=== PATIENT | female | born 1950 | race Caucasian/White ===

== ENCOUNTER 2018-09-09 06:39 | Inpatient (IN) ==
--- NOTE | 2018-08-14 15:04 | PAT Medication Instructions ---
Medication Instructions Date of Service August 14, 2018 Home Medications aspirin [Aspirin Low Dose] 81 mg PO HS atorvastatin 20 mg PO QAM [Viactiv] 1 dose PO DAILY docusate sodium [Dulcolax] 200 mg PO QAM [Glucosamine Complex-MSM] 1 cap PO DAILY losartan 25 mg PO QDL metoprolol succinate 50 mg PO HS metoprolol succinate 100 mg PO QAM multivitamin 1 tab PO DAILY ranitidine HCl 150 mg PO QAM STOP taking 2 weeks before surgery [Glucosamine Complex-MSM] 1 cap PO DAILY DO NOT take the morning of surgery [Viactiv] 1 dose PO DAILY docusate sodium [Dulcolax] 200 mg PO QAM losartan 25 mg PO QDL multivitamin 1 tab PO DAILY Take morning of surgery With a small sip of water, OTHERWISE NOTHING TO EAT OR DRINK AFTER MIDNIGHT: atorvastatin 20 mg PO QAM metoprolol succinate 100 mg PO QAM ranitidine HCl 150 mg PO QAM Take evening before surgery aspirin [Aspirin Low Dose] 81 mg PO HS metoprolol succinate 50 mg PO HS Other Notes If you have any questions please call us at [phone] or [phone] or [phone] or [phone]
--- NOTE | 2018-08-17 09:04 | Anesthesiology Consultation ---
Date of Service August 17, 2018 Assessment & Plan (1) Encounter for pre-operative examination: Chart Review Chart Review: Acceptable Risk for Surgery and Patient seen in Pre Admission Testing Consults Requested cardiac Cardiac Risk Assessment (Sandra) 08/18/18: "Low risk for cardiovascular event for her upcoming total knee replacement...currently optimally medically managed." Teaching & Discussion Instructed NPO after midnight before surgery, except medications with 15 cc of water. Medication instructions provided according to the PAT guidelines. History Surgery Operation Date: 09/09/18 08:50 Proposed Procedures p Right Total Knee Arthroplasty - Fernando Walters MD Height/Weight Height: 5 ft 6 in Weight: 95.708 kg Allergies Allergy/AdvReac Type Severity Reaction Status Date / Time prochlorperazine Allergy Intermediate JAW LOCKS Verified 08/11/18 11:00 hydrochlorothiazide AdvReac Severe SEVERELY Verified 08/11/18 11:02 DECREASED KIDNEY FUNCTION lisinopril AdvReac Severe SEVERELY Verified 08/11/18 11:02 DECREASED KIDNEY FUNCTION Medications Home Medications Medication Instructions Recorded Confirmed Last Taken aspirin [Aspirin Low Dose] 81 mg PO HS 08/11/18 08/11/18 Unknown atorvastatin 20 mg PO QAM 08/11/18 08/11/18 Unknown calcium-vitamin D3-vitamin K 1 dose PO DAILY 08/11/18 08/11/18 Unknown [Viactiv] docusate sodium [Dulcolax Stool 200 mg PO QAM 08/11/18 08/11/18 Unknown Softener (dss)] [id number] 1 cap PO DAILY 08/11/18 08/11/18 Unknown [Glucosamine Complex-MSM] losartan 25 mg PO QDL 08/11/18 08/11/18 Unknown metoprolol succinate 50 mg PO HS 08/11/18 08/11/18 Unknown metoprolol succinate 100 mg PO QAM 08/11/18 08/11/18 Unknown multivitamin 1 tab PO DAILY 08/11/18 08/11/18 Unknown ranitidine HCl 150 mg PO QAM 08/11/18 08/11/18 Unknown Past Medical History Medical History Deep vein thrombosis POSSIBLE SMALL DVT IN LEG (1965), PT UNSURE -- NO BLOOD THINNERS GIVEN. NEVER HAD PROBLEMS SINCE. Diabetes type 2, controlled Usually diet controlled, most recent A1C was 7.2% 07/31, pt admits diet has not been good GERD (gastroesophageal reflux disease) Hiatal hernia Hyperlipidemia Hypertension Nausea and vomiting after administration of anesthetic agent Varicose veins of both lower extremities Past Family History Family History Brother Family history of diabetes mellitus Family/Other Family hx of colon cancer Past Surgical History Surgical History H/O unilateral oophorectomy History of appendectomy History of bilateral tubal ligation History of cholecystectomy History of colonoscopy History of dilatation and curettage History of esophagogastroduodenoscopy (EGD) History of tonsillectomy Past Anesthesia History No Hx of Anesthesia Complications (other) and No Family Hx of Anesthesia Complications History of PONV Yes (severe nausea, no vomiting) Motion Sickness Screening History of Motion Sickness: Yes Social History Smoking Status: Never smoker Do You Dip or Chew Tobacco: No Hx Alcohol Use: No Hx Substance Use: No substance use type: does not use Exercise / Class Metabolic Activity III < 4 Walking/Shop/Light housework (no CP or SOB with ambulation, +SOB with stairs and hills, denies any CP) Review of Systems Pt denies any recent chest pain, shortness of breath, palpitations, cough, fever or URI. Physical Exam Vital Signs BP: 137/84 P: 49bpm (pt asymptomatic, beta blocked) SPO2: 97% RA T: 97.8 F R: 12 ENMT Mouth: + dentures (has partial upper, does not wear) and + dental restorations ( few caps); no chipped teeth and no loose teeth Thyromental Distance: > or= 3.5 Finger Breadths (3.5) Mallampati Class: II Neck normal visual inspection; neck extension not limited Respiratory normal respiratory effort Auscultation: lungs clear to auscultation bilaterally Cardiovascular Rate/Rhythm: regular rhythm and + bradycardic (marked) Heart Sounds: no murmur Vessels: no carotid bruit Extremities: no edema Testing Electrocardiogram Date: 08/17/18 Findings: + SB @ (48) No significant change from EKG of 09/05/08. Chest X-Ray Date: 08/17/18 Findings: + NAD Laboratory Results Blood Type A Positive 08/17/18 09:15 Antibody Screen NEGATIVE 08/17/18 09:15 APTT 26.3 Seconds (21.0-31.0) 08/17/18 09:15 Urine Color Dark Yellow 08/17/18 Unknown Urine Appearance Clear (Clear) 08/17/18 Unknown Urine pH 5.5 (4.5-7.5) 08/17/18 Unknown Ur Specific [place] 1.025 (1.000-1.030) 08/17/18 Unknown Urine Protein Negative (Negative) 08/17/18 Unknown Urine Glucose (UA) Negative (Negative) 08/17/18 Unknown Urine Ketones Trace (Negative) H 08/17/18 Unknown Urine Nitrite Negative (Negative) 08/17/18 Unknown Ur Leukocyte Esterase 1+ (Negative) H 08/17/18 Unknown Urine WBC (Auto) 1-5 /hpf (0-5) 08/17/18 Unknown Urine RBC (Auto) 0-4 /hpf (0-4) 08/17/18 Unknown U Hyaline Cast (Auto) 1-5 /lpf (0-5) 08/17/18 Unknown U Epithel Cells (Auto) >30 /lpf (0-5) H 08/17/18 Unknown Urine Bacteria (Auto) Negative (Negative) 08/17/18 Unknown 08/17/18 Unknown Urine Culture - Final Urine,Clean Catch Lactobacillus species 07/31/18 WBC: 4.84 H/H: 15.4/44.4 PLATELETS: 211 SODIUM: 142 POTASSIUM: 4.9 CHLORIDE: 104 CO2: 28 BUN: 15 CREATININE: 1.0 GLUCOSE: 163 A1C: 7.3% PT: 13.7 INR: 1.02
--- NOTE | 2018-08-17 09:47 | XRay Report ---
XR chest Pre-admission PA/Lat HISTORY: 68 years-old Female pat preoperative exam. No acute chest complaints COMPARISON: CTA of the chest and chest radiographs 09/05/2008 TECHNIQUE: PA and lateral views of the chest FINDINGS: Cardiomediastinal and hilar silhouettes are within normal limits. No pneumothorax, pleural effusion, focal airspace consolidation or overt pulmonary edema. Bones of the chest appear grossly intact. Dege nerative changes are noted about the spine. Cholecystectomy. IMPRESSION: No acute process. The above report was generated using voice recognition software. It may contain grammatical, syntax o r spelling errors. Electronically signed by: Colin Patel M.D. 08/17/2018 9:46 AM
[2018-08-17 11:18] LABS: Appearance Urine Clear (Clear); Bacteria Urine Automated Negative (Negative); Bilirubin Urine Negative (Negative); Color Urine Dark Yellow; Epithelial Cell Urine Auto >30 /lpf (0-5); Glucose Urine UA Negative (Negative); Ketones Urine Trace (Negative); Leukocyte Esterase Urine 1+ (Negative); Nitrite Urine Negative (Negative); Protein Urine Negative (Negative); Specific Gravity Urine 1.025 (1.000-1.030); Urobilinogen Urine Negative (Negative); pH Urine 5.5 (4.5-7.5)
[2018-08-17 11:26] LABS: Partial Thromboplastin Time 26.3 Seconds (21.0-31.0)
--- NOTE | 2018-08-19 17:33 | History and Physical Report ---
DATE OF ADMISSION: 09/09/2018 CHIEF COMPLAINT: Right knee degenerative joint disease. HISTORY OF PRESENT ILLNESS: This 68-year-old white female presents to the office with complaints of longstanding right knee pain. She has actually had bilateral knee pain, but the right is greater than the left. Pain is worse with weightbearing. It is affecting her ADLs. It is worse with walking and weightbearing. She has tried activity modification without improvement. She is not using any significant medication at this point though she has tried NSAIDs in the past. She has also done viscosupplementation in the past without lasting relief. The knee pain has been present for over 6 years. No catching or locking. No buckling. Pain is 5/10 at rest. Preoperative imaging has been obtained. She elects to proceed with right total knee arthroplasty in hopes of alleviating her discomfort. PAST MEDICAL HISTORY: Significant for hypertension, elevated cholesterol, diabetes, GERD, obesity, and osteoarthritis. PREVIOUS SURGERIES: Appendectomy, ovarian cyst excision, tonsillectomy, vein stripping, cholecystectomy. ALLERGIES: NO KNOWN ALLERGY TO COMPAZINE AND LISINOPRIL. COMPAZINE CAUSED A LOCKED JAW. CURRENT MEDICATIONS: Aspirin 81 mg daily, Lipitor 20 mg daily, losartan 25 mg p.o. daily, metoprolol 50 mg p.o. b.i.d., multivitamin daily, ranitidine 300 mg p.o. b.i.d. FAMILY HISTORY: Noncontributory. REVIEW OF SYSTEMS: Total of 10 systems were reviewed and are significant only for above stated conditions. PHYSICAL EXAMINATION: GENERAL: Well-developed, well-nourished elderly white female in no acute distress. Sitting in a chair. Alert and oriented. Obese. SKIN: Warm and dry with good turgor. No rashes or lesions. No ecchymosis or erythema. HEENT: Normocephalic, atraumatic. Eyes PERRLA, EOMI. Nares patent bilaterally without turbinate enlargement. Oropharynx without erythema or exudate. No lesions noted. Uvula midline. Oral mucosa moist. Poor dentition. Multiple teeth are missing. Fillings are noted. HEART: Bradycardic. Regular rhythm. No murmurs, gallops or rubs. LUNGS: Clear to auscultation bilaterally. No crackles, rhonchi or wheezing. Good air movement. ABDOMEN: Obese. Bowel sounds present x4, soft, nontender. No organomegaly. No masses. MUSCULOSKELETAL: Right knee evaluation reveals no intra-articular effusion. Stable cruciate and collateral ligaments. No laxity. She has focal discomfort with palpation over the medial joint line. No pain with palpation over the lateral joint line today. No defect in the patellar tendon or quadriceps tendon. Full terminal extension. Flexion to just greater than 90 degrees. Strength is 5/5 with fair quad tone. She is ambulatory with a slight limp. NEUROLOGIC: Cranial nerves II through XII are intact. Gross sensation is intact across both lower extremities by soft touch. Peripheral pulses are 2+. DATA: Radiographic imaging previously obtained shows end-stage DJD of the right knee. Periarticular osteophytes, subchondral sclerosis, and joint space narrowing are all present. Bone on bone in the medial compartment. IMPRESSION: Right knee end-stage degenerative joint disease. PLAN: Approximately 20 minutes was spent reviewing operative procedure, postoperative recovery, physical therapy requirements and medication use. Postoperative prescriptions for Percocet and Coumadin will be provided at discharge from the hospital. Anticipate discharge to home with outpatient services. Prescription has already been provided for a walker. She has an appointment to see her PCP for medical clearance. Preoperative lab work, EKG, and chest x-ray have been ordered. She would like to start physical therapy here 2 weeks after surgery. Prescription has been provided.
[~2018-09-09 06:39] MED LIST: BUPIVACAINE 0.5 % 5 MG/1 ML PF 10ML VIAL ONE; CEFAZOLIN 2000MG 2,000 MG/15 ML SYR IV SCH; EPINEPHrine INJ 1 MG/ML AMP ONE; LR 60ML/HR IV SCH; ROPIVACAINE 0.5% 5 MG/ML 30 ML VIAL ONE; ROPIVACAINE 0.5% HCL/PF 150 MG, BUPIVACAINE 0.5% MPF 30 ML, EPINEPHrine 0.15 MG, Ketoro... INFIL SCH; TRANEXAMIC ACID 1,000 MG **IV Pre-op IV SCH
--- NOTE | 2018-09-09 06:49 | History & Physical Bridge Note ---
Date of Service September 09, 2018 History & Physical Bridge Note I have examined the patient, reviewed the History & Physical and in the interval since the performance of the History & Physical I have noted the following changes of clinical significance: consent obtained.no changes noted
[2018-09-09] MEDS: LR 500ML BOLUS, THEN 15ML/HR IV SCH ×3 (07:32→15:16)
[2018-09-09] MEDS ORDERED: LIDOCAINE HCL 2% 2 ML VIAL/AMP(20MG/ML) INFIL ONE (07:50)
[2018-09-09] MEDS ORDERED: PROPOFOL IV EMULSION 10 MG/ML 20 ML VIAL IV ONE ×2 (07:50→13:20)
[2018-09-09] MEDS ORDERED: fentaNYL citrate 100 MCG/2 ML VIAL ONE ×2 (07:50→13:15)
[2018-09-09] MEDS ORDERED: MIDAZOLAM HCL 1 MG/ML 2ML VIAL ONE ×3 (07:50→09:35)
[2018-09-09] MEDS ORDERED: fentaNYL citrate 100 MCG/2 ML VIAL IV PRN (08:17)
[2018-09-09] MEDS ORDERED: LABETALOL HCL IV 5 MG/ML 20ML IV PRN (08:17)
[2018-09-09] MEDS ORDERED: ONDANSETRON INJ 2 MG/ML 2 ML VIAL IV PRN ×2 (08:17→12:39)
[2018-09-09] MEDS ORDERED: HYDROmorphone INJ 1 MG/ML SYRINGE IV PRN (08:17)
[2018-09-09] MEDS ORDERED: ATROPINE SULFATE 0.1 MG/ML 10ML SYR IV PRN (08:17)
[2018-09-09] MEDS ORDERED: MEPERIDINE HCL 25 MG/ML CARP IV PRN (08:17)
[2018-09-09] MEDS ORDERED: ePHEDrine sulfate 50 MG/ML AMP IV PRN (08:17)
[2018-09-09] MEDS ORDERED: PHENYLEPHRINE 100MCG/ML 5ML SYR IV PRN (08:17)
[2018-09-09] MEDS ORDERED: ORTHO JOINT ANESTHETIC ONE (08:50)
[2018-09-09] MEDS ORDERED: POVIDONE-IODINE OP SOLN 30 ML BTL ONE (08:50)
[2018-09-09] MEDS ORDERED: KETAMINE HCL INJ 50 MG/ML 10 ML VIAL ONE (09:36)
[2018-09-09] MEDS ORDERED: METOCLOPRAMIDE HCL INJ 5 MG/ML 2 ML VIAL ONE (09:42)
[2018-09-09] MEDS ORDERED: DiphenhydrAMINE HCL 50 MG/ML VIAL ONE (09:42)
--- NOTE | 2018-09-09 10:37 | Post Operative Brief Note ---
Immediate Post Op Note v1 Date of Surgery September 09, 2018 Pre & Post Diagnosis Operation Date: 09/09/18 08:50 Pre-Op Diagnosis: Right Knee End-Stage Degenerative Joint Disease Post-Op Diagnosis: Right Knee End-Stage Degenerative Joint Disease Procedure Operation Date: 09/09/18 08:50 Actual Procedures p Right Total Knee Arthroplasty(Right) - Fernando Walters MD Surgeon Fernando Walters MD [facility] Estimated Blood Loss 50 Findings Consistent with Post-Op Diagnosis
--- NOTE | 2018-09-09 11:00 | Operative Report ---
Post Operative Report Pre & Post Diagnosis Operation Date: 09/09/18 08:50 Pre-Op Diagnosis: Right Knee End-Stage Degenerative Joint Disease Post-Op Diagnosis: Right Knee End-Stage Degenerative Joint Disease Procedure Operation Date: 09/09/18 08:50 Actual Procedures p Right Total Knee Arthroplasty(Right) - Fernando Walters MD Surgeon JILLIAN Walters MD Radio Equipment Repairer [employer] Estimated Blood Loss 50 Findings Consistent with Post-Op Diagnosis Specimens See operative report Drains None Complications none Disposition Accompanied Patient To Recovery: Yes Disposition: Recovery Room Indications This 68-year-old white female presented to the office with complaints of intractable right knee pain. She had tried conservative care measures including activity modification and injection therapy without improvement. She elected to proceed with surgical intervention after being educated about potential risks and outcomes. Preoperative imaging was obtained. Description of Procedure Patient was administered a spinal anesthetic and was then taken to the operating room where she was given sedation. She was prepped and draped in the usual sterile fashion. Please see Dr. Walters's operative report for specifics of the procedure. I was present for the entire case from initial patient positioning through final wound closure. Assistance was provided in tissue retraction, hemostasis, trial implant placement, final implant placement , and final wound closure. Patient was taken to the recovery room in satisfactory condition. I attest to the content of the Intraoperative Record and any orders documented therein. Any exceptions are noted below.
--- NOTE | 2018-09-09 11:11 | Anesthesiology Progress Note ---
Date of Service September 09, 2018 Anesthesia Post Procedure Vital Signs Vital Signs: Temp Pulse Pulse Resp BP Pulse Ox 09/09/18 11:05 59 L 15 144/77 H 100 09/09/18 10:55 59 L 15 125/68 97 09/09/18 10:46 36.5 C 66 18 112/70 94 09/09/18 07:14 36.7 C 56 L 18 186/98 H 96 Notes Mental Status: alert / awake / arousable Patient Amnestic to Procedure: Yes Nausea / Vomiting: adequately controlled Pain: adequately controlled Airway Patency, RR, SpO2: stable & adequate BP & HR: stable & adequate Hydration State: stable & adequate Neuraxial Anesthesia: was administered and sensory block is resolving Anesthetic Complications: no major complications apparent and Pt Satisfied with anesthetic care
--- NOTE | 2018-09-09 11:14 | Operative Report ---
DATE OF OPERATION: 09/09/2018 SURGEON: Fernando Walters MD. UPPER CUTTER OUT: Chago Xavier PA-C. No resident or fellow available. PREOPERATIVE DIAGNOSIS: Osteoarthritis with varus flexion deformity, right knee. POSTOPERATIVE DIAGNOSIS: Osteoarthritis with varus flexion deformity, right knee. OPERATION PERFORMED: Cemented right total knee replacement. PERIOPERATIVE SITUATION: Medically cleared female with intractable knee pain with physical exam, x-ray revealing substantial tricompartmental osteoarthritis with severe disease medially with lateral subluxation of the tibia and varus and flexion deformity. SUMMARY OF IMPLANTS: Size 2.5 right posterior cruciate substituting femur, size 2.5 mobile bearing tray rotating platform, oval domed 3 pegged patella, size 38 tibial insert, size 2.5 x 12.5 posterior cruciate substituting, 2 bags of Palacos G cement. ESTIMATED BLOOD LOSS: 50 mL. CRYSTALLOID: Per anesthesia. BONE PATHOLOGY: Pending. PROCEDURE DESCRIPTION: The patient appropriately identified, site verified, consent verified. Antibiotics were confirmed as being given. Right lower extremity was prepped and draped in usual routine fashion. Tourniquet inflated to 300 mmHg after exsanguination of limb with a rubber Esmarch bandage. Total tourniquet time was 43 minutes. Midline exposure was utilized. Parapatellar arthrotomy performed. Synovectomy completed, osteophytes resected. The distal femur then entered. The distal femur then resected 14 mm. Proximal tibia resected 4 mm. The extension gap was excellent. The tibia was sized to 2.5. The femur was then sized after the extension gap was checked and it was 2.5 as well. That was then resected with the anterior and posterior condylar and chamfer cuts. The flexion gap was checked. It was excellent. The box cut was then made and a size 2.5 fit well. The tibia was then broached and reamed to 2.5, and with a 10 and a 12.5 mm spacer, the 12.5 gave a little bit more mid range flexion stability without losing extension, so that was accepted. The patella was then sized to a 38, it was resected leaving 15 mm and the seating holes made and the trial tracked well. The wound was then injected with the Orthomix. It should be mentioned that posteriorly, it was injected with 2 mL at the time of checking the flexion gap with 2 syringes. The range of motion and stability of the knee was excellent. Full extension, mid range flexion and full flexion and the patella tracked well. All trial implants were then removed. The wound was then irrigated with Betadine, Pulsavac. Again the Orthomix was injected prior to this. The permanents were then cemented into position. After 12 minutes, the tourniquet deflated. After additional 2 minutes, the knee was then flexed. There was no cement that needed to be removed. There was no major bleeding. EBL was 50 mL. The trial spacer was removed and then the permanent seated after the wound was irrigated with Betadine, knee then reduced and closed with #2-0 Vicryl and stainless steel clips. Appropriate dressing applied. The patient transferred to recovery room in satisfactory condition having tolerated the procedure well. DVT prophylaxis with Coumadin. I attest to the content of the Intraoperative Record and any orders documented therein. Any exception s are noted below.
--- NOTE | 2018-09-09 11:19 | Progress Note ---
DATE: 09/09/2018 Postop check status post right total knee replacement. The patient is resting comfortably in the PACU. She denies chest pain, shortness of breath, fever, chills, nausea, vomiting or headache. Vital signs are stable. She is afebrile. Neurovascular check is limited by spinal. Wound dressing clean, dry and intact. X-ray pending. ASSESSMENT: Doing well. Continue with postoperative care pathway. Potentially discharge tomorrow. Hep-Lock IV when p.o. well.
--- NOTE | 2018-09-09 11:26 | XRay Report ---
XR knee RT 2V routine HISTORY: 68 years-old Female Surgical Post Op right knee total joint arthroplasty COMPARISON: Knee radiographs 05/11/2018 TECHNIQUE: 2 views of the right knee FINDINGS: Right knee total joint arthroplasty and patella resurfacing demonstrates satisfactory alignment witho ut acute fracture or retained foreign body. Anterior midline skin christiano are noted along with expect ed postsurgical soft tissue swelling and deep tissue air with surgical drainage catheter. IMPRESSION: Right knee total joint arthroplasty and patella resurfacing with satisfactory alignment. The above report was generated using voice recognition software. It may contain grammatical, syntax o r spelling errors. Electronically signed by: Colin Patel M.D. 09/09/2018 11:25 AM
[2018-09-09] MEDS ORDERED: NALOXONE HCL 0.4 MG/1 ML VIAL/CARP IV PRN (12:39)
[2018-09-09] MEDS ORDERED: METOCLOPRAMIDE HCL INJ 5 MG/ML 2 ML VIAL IV PRN (12:39)
[2018-09-09] MEDS ORDERED: SODIUM CHLORIDE 0.9% 1000ML 1,000 ML IV SCH (12:39)
[2018-09-09] MEDS ORDERED: ALUMINUM/MAGNESIUM SUSP 30 ML UDC PO PRN (12:39)
[2018-09-09] MEDS ORDERED: DiphenhydrAMINE HCL 50 MG/ML VIAL IV PRN (12:39)
[2018-09-09] MEDS ORDERED: BISACODYL 10 MG SUPP PR PRN (12:39)
[2018-09-09] MEDS ORDERED: MAGNESIUM HYDROXIDE SUSP 30 ML UDC PO PRN (12:39)
[2018-09-09] MEDS ORDERED: HYDROmorphone INJ 0.5 MG/0.5 ML SYR IV PRN (12:39)
[2018-09-09] MEDS ORDERED: ORTHO WARFARIN NOMOGRAM SCH (14:00)
[2018-09-09] MEDS: LOSARTAN POTASSIUM 25 MG TAB PO SCH (14:16)
[2018-09-09] MEDS: ACETAMINOPHEN 500 MG TAB PO SCH ×2 (14:16→21:38)
[2018-09-09] MEDS ORDERED: WARFARIN SOD 5 MG TAB PO SCH (16:00)
[2018-09-09] MEDS ORDERED: TRANEXAMIC ACID 1,000 MG in 0.9 % SODIUM CHLORIDE 100 ML IV SCH (16:50)
[2018-09-09] MEDS: FERROUS GLUCONATE 324 MG TAB PO SCH (17:07)
[2018-09-09] MEDS: CEFAZOLIN 2000MG 2,000 MG/15 ML SYR IV SCH (17:07)
[2018-09-09] MEDS: KETOROLAC TROMETHAMINE 15 MG/ML VIAL IV PRN (17:18)
[2018-09-09] MEDS: DOCUSATE SODIUM 100 MG CAP PO SCH (20:37)
[2018-09-09] MEDS ORDERED: METOPROLOL SUCC 50MG EXT REL TAB PO SCH (21:00)
[2018-09-09] MEDS ORDERED: ASPIRIN 81 MG ECTAB PO SCH (21:00)
[2018-09-09] MEDS ORDERED: SENNA 8.6 MG TAB PO SCH (21:00)
[2018-09-10] MEDS: CEFAZOLIN 2000MG 2,000 MG/15 ML SYR IV SCH (02:12)
[2018-09-10] MEDS: KETOROLAC TROMETHAMINE 15 MG/ML VIAL IV PRN (02:12)
[2018-09-10] MEDS: ACETAMINOPHEN 500 MG TAB PO SCH ×2 (05:23→14:24)
[2018-09-10 06:32] LABS: Hematocrit (blood only) 36.1 % (37-47); Hemoglobin 12.2 g/dL (12.0-16.0); Mean Corpuscular Hgb Conc 33.8 g/dL (32-36); Mean Corpuscular Volume 91.4 fL (80-100); Mean Platelet Volume 10.2 fL (7.4-10.4); Platelet Count 152 K/uL (130-400); RDW Standard Deviation 43.9 fL (36.4-46.3); Red Blood Count 3.95 M/uL (4.2-5.4); White Blood Count 8.76 K/uL (4.8-10.8)
[2018-09-10 07:06] LABS: BUN Creatinine Ratio 24.6 (10-20); Creatinine Clr Calc Pharmacy 51.3 ml/min; Est GFR (African American) 53.4; Est GFR (Non-African American) 46.1; Potassium 3.6 mmol/L (3.5-5.1)
[2018-09-10 07:23] LABS: INR 1.2 (0.9-1.1); Prothrombin Time 12.3 Seconds (9.0-12.0)
[2018-09-10] MEDS: FERROUS GLUCONATE 324 MG TAB PO SCH (07:41)
[2018-09-10] MEDS ORDERED: dexAMETHasone 10 MG in SYRINGE 0 ML IV SCH (08:00)
--- NOTE | 2018-09-10 08:13 | Anesthesiology Progress Note ---
Date of Service September 10, 2018 Anesthesia Post Procedure Vital Signs Vital Signs: Temp Pulse Pulse Resp BP Pulse Ox 09/10/18 07:00 37.0 C 50 L 18 153/78 H 95 09/10/18 03:41 36.8 C 55 L 14 132/79 95 09/09/18 23:48 36.5 C 52 L 16 122/75 94 09/09/18 21:37 52 L 143/81 H 09/09/18 15:24 36.8 C 57 L 16 136/79 92 09/09/18 14:05 36.7 C 56 L 16 150/84 H 95 09/09/18 13:10 56 L 16 160/77 H 98 09/09/18 12:39 36.7 C 56 L 16 146/87 H 97 09/09/18 12:10 36.8 C 62 16 153/91 H 94 09/09/18 11:55 55 L 18 150/91 H 97 09/09/18 11:45 36.6 C 57 L 15 147/87 H 97 09/09/18 11:35 56 L 14 152/85 H 97 09/09/18 11:25 59 L 14 148/79 H 97 09/09/18 11:15 59 L 15 144/76 H 98 09/09/18 11:05 59 L 15 144/77 H 100 09/09/18 10:55 59 L 15 125/68 97 09/09/18 10:46 36.5 C 66 18 112/70 94 Notes Mental Status: alert / awake / arousable and participated in evaluation Patient Amnestic to Procedure: Yes Nausea / Vomiting: adequately controlled Pain: adequately controlled Airway Patency, RR, SpO2: stable & adequate BP & HR: stable & adequate Hydration State: stable & adequate Neuraxial Anesthesia: was administered and sensory block resolved Anesthetic Complications: no major complications apparent and Pt Satisfied with anesthetic care
[2018-09-10] MEDS ORDERED: METOPROLOL SUCC 50MG EXT REL TAB PO SCH (09:00)
[2018-09-10] MEDS ORDERED: ATORVASTATIN 20 MG TAB PO SCH (09:00)
[2018-09-10] MEDS ORDERED: DOCUSATE SODIUM 100 MG CAP PO SCH (09:00)
[2018-09-10] MEDS ORDERED: MULTIVITAMIN TAB PO SCH (09:00)
[2018-09-10] MEDS: DOCUSATE SODIUM 100 MG CAP PO SCH (09:15)
[2018-09-10] MEDS: OXYCODONE HCL IR 5 MG TAB (IMMEDIATE RELEASE) PO PRN ×2 (09:23→14:24)
--- NOTE | 2018-09-10 09:23 | Orthopedic Progress Note ---
Date of Service September 10, 2018 Assessment & Plan (1) S/P total knee replacement: Post op day 1 R knee TKA Dressings changed by me-will remain in place until Friday PT/OT today coumadin per nomogram-discharge on 4mg continue knee immobilizer today and tomorrow, then D/C D/C to home later today follow up in the office in 2 weeks for staple removal have her INR checked on Friday Subjective Pt seen in her room this morning. Just finished walking in the [place]. Has not required any narcotics for pain control. Denies any chest pain, SOB, Nausea, vomiting, or abd pain. Feels ready to go home. Physical Exam 2 Vital Signs (Past 24 Hours): Last Vital Signs Temp 37.0 C 09/10/18 07:00 Pulse 50 L 09/10/18 07:00 Resp 18 09/10/18 07:00 BP 153/78 H 09/10/18 07:00 Pulse Ox 95 09/10/18 07:00 Physical Exam: Dressings clean/dry. Upon removal, no active drainage. Expected post op edema/ecchymosis. Has intact quad function. Able to do a straight leg raise. Intact motor function and sensation to foot/ankle.
--- NOTE | 2018-09-10 11:16 | Discharge Summary ---
ATTENDING PHYSICIAN: Fernando Walters MD CONSULTING PHYSICIANS: None. PRIMARY CARE DOCTOR: Daryl Xiao MD CONDITION ON DISCHARGE: Stable. ADMITTING DIAGNOSIS: Right knee endstage degenerative joint disease. DISCHARGE DIAGNOSIS: Right knee status post total knee arthroplasty. PROCEDURE: Right knee total knee arthroplasty, 09/09/2018. HISTORY OF PRESENT ILLNESS: This 68-year-old white female presented to the office with complaints of longstanding history of right knee pain. Pain was worse with weightbearing. It was affecting her ADLs. She had tried activity modification as well as other conservative measures without improvement. She elected to proceed with surgical intervention in hopes of alleviating her pain. Preoperative imaging was obtained. PAST MEDICAL HISTORY: Significant for hypertension, elevated cholesterol, diabetes, GERD, obesity, and osteoarthritis. PAST SURGICAL HISTORY: Appendectomy, ovarian cyst excision, tonsillectomy, vein stripping, cholecystectomy, right total knee arthroplasty yesterday. ALLERGIES: KNOWN ALLERGY TO COMPAZINE AND LISINOPRIL. COMPAZINE CAUSED A LOCKED JAW. DISCHARGE MEDICATIONS: Aspirin 81 mg daily, Lipitor 20 mg daily, losartan 25 mg daily, metoprolol 50 mg p.o. b.i.d., multivitamin daily, ranitidine 300 mg p.o. b.i.d., Percocet 5/325 mg q. 4 hours p.r.n., Coumadin 4 mg daily. FAMILY HISTORY: Noncontributory. HOSPITAL COURSE: The patient was admitted through same day surgery on 09/09/2018. She underwent successful right total knee arthroplasty and was taken to the recovery room. From there, she was transferred to the orthopedic floor. She did well. She did not have any significant pain. No chest pain, shortness of breath, nausea, vomiting, or abdominal pain. She did not require any narcotic medication on postop day 1. Her overnight was uneventful. She was able to ambulate in the hallway with nursing assistance. On postop day 1, she was reassessed. The patient was observed, ambulating in the hallway. She states she feels well. She feels ready for discharge. The patient will be seen by PT and OT today prior to discharge. Dressings were changed and the wound looks good. No active drainage. Vitals remained adequate with BP 153/78 and pulse 50. Respirations 20, temperature 37.0, T-max was 37.0 during her stay. LABORATORY DATA: CBC today shows WBC is 8.76, hemoglobin 12.2, hematocrit 36.1, platelets 152,000. PT 12.3, INR 1.2. PRP shows sodium 139, potassium 3.6, chloride 107, CO2 of 25, BUN 29, creatinine 1.2, glucose 148. DISCHARGE INSTRUCTIONS: Written discharge instructions were given to the patient. She will keep the wound dry. Continue using her knee immobilizer today and tomorrow and then it can be discontinued. Continue using her walker. Take her Coumadin 4 mg daily on Friday through Friday and have her blood rechecked on Friday. Follow up in the office in 2 weeks for staple removal as scheduled. Call with any other concerns. Home Health has been arranged. CHANG
[2018-09-10] MEDS: LOSARTAN POTASSIUM 25 MG TAB PO SCH (11:23)
[2018-09-10] MEDS ORDERED: WARFARIN SOD 5 MG TAB PO ONE (14:15)
== END 2018-09-10 14:51 | disposition home or self-care (01) | DRG 470 ==
LOC: ASU 06:39 → 3W 10:56

== ENCOUNTER 2018-12-30 04:52 | Inpatient (IN) ==
--- NOTE | 2018-12-02 16:25 | PAT Medication Instructions ---
Medication Instructions Date of Service December 02, 2018 Home Medications Viactiv 1 dose PO DAILY aspirin [Aspirin Low Dose] 81 mg PO HS atorvastatin 20 mg PO QAM docusate sodium [Dulcolax Stool 200 mg PO QAM losartan 25 mg PO QDL metoprolol succinate 50 mg PO HS metoprolol succinate 100 mg PO QAM multivitamin 1 tab PO DAILY ranitidine HCl 150 mg PO QAM DO NOT take the morning of surgery Viactiv 1 dose PO DAILY docusate sodium [Dulcolax Stool 200 mg PO QAM multivitamin 1 tab PO DAILY losartan 25 mg PO QDL Take morning of surgery With a small sip of water, OTHERWISE NOTHING TO EAT OR DRINK AFTER MIDNIGHT: atorvastatin 20 mg PO QAM metoprolol succinate 100 mg PO QAM ranitidine HCl 150 mg PO QAM Take evening before surgery aspirin [Aspirin Low Dose] 81 mg PO HS metoprolol succinate 50 mg PO HS Other Notes If you have any questions please call us at [phone] or [phone] or [phone] or [phone]
--- NOTE | 2018-12-07 10:14 | Anesthesiology Consultation ---
Date of Service December 07, 2018 Assessment & Plan (1) Encounter for pre-operative examination: - PCP: 12/24/18: "Pt seems to be at low cardiac risk for this intermediate surgery and therefore cleared. HGBA1C 7.0%- at this point being diet managed. "Monitor surgar joe op, might need insulin. Post op if kidney function is normal would start low dose metformin 500mg XL once a day." - Cardio: 12/10/18: "Medically optimized.. No further cardiac testing warranted at this time prior to planned orthopedic surgery." - S/P Right TKA: 09/09/18: SAB x 1 attempt at L3/L4 + PNB at [facility]. Patient c/o nausea; given zofran/benadryl/reglan - Okay to continue ASA perioperatively per surgeon* - Check BSG AM DOS Chart Review Chart Review: Acceptable Risk for Surgery and Patient seen in Pre Admission Testing Teaching & Discussion Pre-Anesthesia Teaching/Discussion Notes: Instructed NPO after midnight before surgery,except medications with 15 cc of water. Medication instructions provided according to the PAT guidelines. History Surgery Operation Date: 12/30/18 08:55 Proposed Procedures p Left Total Knee Arthroplasty - Fernando Walters MD Height/Weight Height: 5 ft 6 in Weight: 95.7 kg Allergies Allergy/AdvReac Type Severity Reaction Status Date / Time prochlorperazine Allergy Intermediate JAW LOCKS Verified 12/02/18 11:29 hydrochlorothiazide AdvReac Severe SEVERE Verified 12/07/18 10:03 KIDNEY FUNCTION WORSENING lisinopril AdvReac Severe SEVERE Verified 12/07/18 10:03 KIDNEY FUNCTION WORSENING Medications Home Medications Medication Instructions Recorded Confirmed Last Taken Viactiv 1 dose PO DAILY 08/11/18 12/02/18 09/05/18 06:00 aspirin [Aspirin Low Dose] 81 mg PO HS 08/11/18 12/02/18 09/08/18 17:00 atorvastatin 20 mg PO QAM 08/11/18 12/02/18 09/09/18 05:30 docusate sodium [Dulcolax Stool 200 mg PO QAM 08/11/18 12/02/18 09/08/18 06:00 Softener (dss)] losartan 25 mg PO QDL 08/11/18 12/02/18 09/08/18 12:00 metoprolol succinate 50 mg PO HS 08/11/18 12/02/18 09/08/18 17:00 metoprolol succinate 100 mg PO QAM 08/11/18 12/02/18 09/09/18 05:30 multivitamin 1 tab PO DAILY 08/11/18 12/02/18 09/08/18 06:00 ranitidine HCl 150 mg PO QAM 08/11/18 12/02/18 09/09/18 05:30 Past Medical History Medical History CKD (chronic kidney disease) STAGE III Deep vein thrombosis ? LE DVT (1964); NO DEFINITIVE DIAGNOSIS/TREATMENT- NO ISSUES SINCE Diabetes USUALLY DIET CONTROLLED, MOST RECENT A1C 7.0% ON 11/2016- PCP MONITORING GERD (gastroesophageal reflux disease) CONTROLLED Hiatal hernia Hyperlipidemia Hypertension Varicose veins of both lower extremities Exercise / Class Metabolic Activity III < 4 Walking/Shop/Light housework (USES CANE PRN FOR LONG DISTANCES) Past Family History Family History Brother Family history of diabetes mellitus Family/Other Family hx of colon cancer Past Surgical History Surgical History H/O unilateral oophorectomy History of appendectomy History of bilateral tubal ligation History of cholecystectomy History of colonoscopy History of dilatation and curettage History of esophagogastroduodenoscopy (EGD) History of tonsillectomy History of total knee replacement Right TKA: 09/09/18: SAB x 1 attempt at L3/L4 + PNB at [facility]. Patient c/o nausea; given zofran/benadryl/reglan Past Anesthesia History No Hx of Anesthesia Complications (EXCEPT PONV) and No Family Hx of Anesthesia Complications History of PONV History of PONV and Hx of Motion Sickness Social History Smoking Status: Never smoker Do You Dip or Chew Tobacco: No Hx Alcohol Use: No Hx Substance Use: No substance use type: does not use Review of Systems Patient denies chest pain, shortness of breath, cough, wheezing, palpitations. Physical Exam Vital Signs VITALS BP 149/85 P 51 TEMP 97.6 SP02 97%RA RESP 18 PHYSICAL Full neck and c-spine range of motion. Full TMJ range of motion. TMD 3.5 finger breaths Mallampati Score 1 Dentition: missing sides, several crowns Lungs: clear throughout to auscultation Cardiac: regular rate and rhythm, no murmurs noted Spine: normal Carotid arteries: negative bruit Extremities: no edema Testing Laboratory Results 12/07/18 10:40 12/07/18 12/07/18 12/07/18 10:40 10:40 10:40 PT 10.6 INR 1.0 APTT 25.7 Urine Color Dark Yellow Urine Appearance Clear Urine pH 6.0 Ur Specific [place] 1.022 Urine Protein Negative Urine Glucose (UA) Negative Urine Ketones Negative Urine Nitrite Negative Ur Leukocyte Esterase 1+ H Urine WBC (Auto) 1-5 Urine RBC (Auto) 5-10 H U Hyaline Cast (Auto) 1-5 U Epithel Cells (Auto) >30 H Urine Bacteria (Auto) Negative Blood Type A Positive Antibody Screen NEGATIVE Electrocardiogram Date: 08/17/18 SB at 48bpm. No significant change compared to 2008 per cardio. Chest X-Ray Date: 08/17/18 Findings: + NAD Echocardiogram Date: 08/21/16 LVEF 55-59%. No RWMA. Mild LAE. Grade I DD. Mild AR. Mild mild annular calcification. Proximal ascending thoracic aorta mildly enlarged. Other Testing 12/04/18 SODIUM 141 POTASSIUM 4.4 CHLORIDE 101 CO2 27 BUN 22 CREATININE 1.0 GLUCOSE 134 HGBA1C 7.0%
[2018-12-07 11:32] LABS: Basophils # (auto) 0.02 K/uL (0-0.2); Basophils % (auto) 0.4 %; Eosinophils # (auto) 0.15 K/uL (0-0.5); Eosinophils % (auto) 3.1 %; Hematocrit (blood only) 41.4 % (37-47); Hemoglobin 14.2 g/dL (12.0-16.0); Lymphocytes # (auto) 1.55 K/uL (1.2-3.4); Lymphocytes % (auto) 31.6 %; Mean Corpuscular Hgb Conc 34.3 g/dL (32-36); Mean Corpuscular Volume 88.7 fL (80-100); Mean Platelet Volume 10.3 fL (7.4-10.4); Monocytes # (auto) 0.47 K/uL (0.11-0.59); Monocytes % (auto) 9.6 %; Neutrophils # (auto) 2.71 K/uL (1.4-6.5); Neutrophils % (auto) 55.3 %; Platelet Count 194 K/uL (130-400); RDW Coefficient of Variation 13.1 % (11.5-14.5); RDW Standard Deviation 42.1 fL (36.4-46.3); Red Blood Count 4.67 M/uL (4.2-5.4)
[2018-12-07 11:37] LABS: Appearance Urine Clear (Clear); Bacteria Urine Automated Negative (Negative); Bilirubin Urine Negative (Negative); Blood Urine Negative (Negative); Color Urine Dark Yellow; Epithelial Cell Urine Auto >30 /lpf (0-5); Glucose Urine UA Negative (Negative); Ketones Urine Negative (Negative); Leukocyte Esterase Urine 1+ (Negative); Nitrite Urine Negative (Negative); Protein Urine Negative (Negative); Specific Gravity Urine 1.022 (1.000-1.030); Urobilinogen Urine Negative (Negative)
[2018-12-07 11:55] LABS: Partial Thromboplastin Ratio 0.9; Partial Thromboplastin Time 25.7 Seconds (21.0-31.0); Prothrombin Time 10.6 Seconds (9.0-12.0)
--- NOTE | 2018-12-10 20:18 | History and Physical Report ---
DATE OF ADMISSION: 12/30/2018 PATIENT OF: Fernando Walters MD. CHIEF COMPLAINT: Left knee pain. HISTORY OF PRESENT ILLNESS: This 68-year-old white female presents with complaints of longstanding history of left knee pain. It is worse with weightbearing. It is affecting her ADLs. She has tried activity modification without improvement. She has also tried NSAIDs in the past as well as viscosupplementation. Knee pain has been present for over 6 years. No catching or locking. No buckling. No numbness or tingling. Preoperative imaging has been obtained. She previously had a right total knee arthroplasty 09/09/2018 and has done well with that. She elects to proceed with the same on the left. No specific injury or trauma to the left knee. PAST MEDICAL HISTORY: Significant for hypertension, elevated cholesterol, diabetes, GERD, obesity, osteoarthritis, and hiatal hernia. PREVIOUS SURGERIES: Appendectomy, ovarian cyst excision, tonsillectomy, vein stripping, cholecystectomy, right knee total knee arthroplasty on 09/09/2018. ALLERGIES: KNOWN ALLERGY TO COMPAZINE AND LISINOPRIL. THE COMPAZINE CAUSED A LOCKED JAW. CURRENT MEDICATIONS: Amoxicillin 500 mg prior to dental visits, aspirin 81 mg p.o. daily, atorvastatin 20 mg p.o. daily, losartan 25 mg p.o. daily, metoprolol 50 mg p.o. b.i.d. (50 mg in a.m., 100 mg in p.m.), multivitamin daily, ranitidine 300 mg p.o. b.i.d. FAMILY HISTORY: Noncontributory. Parents are . SOCIAL HISTORY: The patient is retired. No tobacco use, . REVIEW OF SYSTEMS: A total of 10 systems are reviewed and are significant only for above stated conditions. PHYSICAL EXAMINATION: GENERAL: Well-developed, well-nourished elderly white female in no acute distress. Sitting in a chair. Alert and oriented. Obese. SKIN: Warm and dry with good turgor. No rashes or lesions. No ecchymosis or erythema. HEENT: Normocephalic, atraumatic. Eyes PERRLA, EOMI. Nares patent bilaterally without turbinate enlargement. Oropharynx without erythema or exudate. No lesions noted. Uvula midline. Oral mucosa moist. Poor dentition. Multiple teeth are missing. Fillings are noted. HEART: Bradycardic today. Regular rhythm. No MGR. LUNGS: Clear to auscultation bilaterally. No crackles, rhonchi or wheezing. Good air movement. ABDOMEN: Obese. Bowel sounds present x4, soft, nontender. No organomegaly. No masses. MUSCULOSKELETAL: Left knee reveals no intraarticular effusion today. Stable collateral ligaments. No laxity. There is focal discomfort with palpation over the medial joint line. No pain with palpation laterally today. No defect in the patellar tendon or quadriceps tendon. Full terminal extension. Flexion to greater than 90 degrees. Strength is 5/5 with fair quad tone. Ambulatory with a slight limp. NEUROLOGIC: Cranial nerves II through XII are intact. Gross sensation is intact across both lower extremities by soft touch. Peripheral pulses are 2+. DATA: Radiographic imaging previously obtained shows end-stage DJD of the left knee. Periarticular osteophytes, subchondral sclerosis, and joint space narrowing are all present. IMPRESSION: Left knee degenerative joint disease. PLAN: Approximately 20 minutes was spent with the patient reviewing operative procedure, postoperative recovery, physical therapy requirements and medication use. Postoperative prescriptions for Percocet and Coumadin will be provided at discharge from the hospital. Anticipate discharge to home with home health services. Preoperative lab work, EKG, and chest x-ray have been ordered. 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 We already have her medical clearance from her previous surgery. Blood sugars will be checked on the morning of surgery.
[2018-12-30] MEDS ORDERED: TRANEXAMIC ACID 1,000 MG **IV Pre-op IV SCH (06:00)
[2018-12-30] MEDS ORDERED: LR 500ML BOLUS, THEN 15ML/HR IV SCH (06:00)
[2018-12-30] MEDS ORDERED: CEFAZOLIN 2000MG 2,000 MG/15 ML SYR IV SCH (06:00)
[2018-12-30] MEDS ORDERED: ROPIVACAINE 0.5% HCL/PF 150 MG, BUPIVACAINE 0.5% MPF 30 ML, EPINEPHrine 0.15 MG, Ketoro... INFIL SCH (06:00)
[2018-12-30] MEDS ORDERED: LR 60ML/HR IV SCH (06:00)
[2018-12-30] MEDS ORDERED: ROPIVACAINE 0.5% 5 MG/ML 30 ML VIAL ONE (06:28)
[2018-12-30] MEDS ORDERED: EPINEPHrine INJ 1 MG/ML AMP ONE (06:28)
[2018-12-30] MEDS ORDERED: BUPIVACAINE 0.5 % 5 MG/1 ML PF 10ML VIAL ONE (06:28)
--- NOTE | 2018-12-30 06:31 | History & Physical Bridge Note ---
Date of Service December 30, 2018 History & Physical Bridge Note I have examined the patient, reviewed the History & Physical and in the interval since the performance of the History & Physical I have noted the following changes of clinical significance:consent obtained. no changes noted
[2018-12-30] MEDS ORDERED: ORTHO JOINT ANESTHETIC ONE (06:32)
[2018-12-30] MEDS ORDERED: fentaNYL citrate 100 MCG/2 ML VIAL ONE (06:37)
[2018-12-30] MEDS ORDERED: MIDAZOLAM HCL 1 MG/ML 2ML VIAL ONE ×3 (06:37→07:11)
[2018-12-30] MEDS ORDERED: SCOPOLAMINE 1.5 MG TDSY ONE (06:46)
[2018-12-30] MEDS ORDERED: ONDANSETRON INJ 2 MG/ML 2 ML VIAL ONE (07:13)
[2018-12-30] MEDS ORDERED: LIDOCAINE HCL 2% 2 ML VIAL/AMP(20MG/ML) INFIL ONE (07:13)
[2018-12-30] MEDS ORDERED: PROPOFOL IV EMULSION 10 MG/ML 20 ML VIAL IV ONE ×2 (07:13→07:51)
[2018-12-30] MEDS ORDERED: fentaNYL citrate 100 MCG/2 ML VIAL IV PRN (07:26)
[2018-12-30] MEDS ORDERED: ePHEDrine sulfate 50 MG/ML AMP IV PRN (07:26)
[2018-12-30] MEDS ORDERED: ATROPINE SULFATE 0.1 MG/ML 10ML SYR IV PRN (07:26)
[2018-12-30] MEDS ORDERED: HYDROmorphone INJ 1 MG/ML SYRINGE IV PRN (07:26)
[2018-12-30] MEDS ORDERED: ONDANSETRON INJ 2 MG/ML 2 ML VIAL IV PRN ×2 (07:26→09:41)
--- NOTE | 2018-12-30 08:18 | Post Operative Brief Note ---
Immediate Post Op Note v1 Date of Surgery December 30, 2018 Pre & Post Diagnosis Operation Date: 12/30/18 07:00 Pre-Op Diagnosis: Left Knee End-Stage Degenerative Joint Disease Post-Op Diagnosis: Left Knee End-Stage Degenerative Joint Disease Procedure Operation Date: 12/30/18 07:00 Actual Procedures p Left Total Knee Arthroplasty(Left) - Fernando Walters MD Surgeon Fernando Walters MD [facility] Est[facility] Blood Loss 50 Findings Consistent with Post-Op Diagnosis
--- NOTE | 2018-12-30 08:25 | Operative Report ---
Post Operative Report Pre & Post Diagnosis Operation Date: 12/30/18 07:00 Pre-Op Diagnosis: Left Knee End-Stage Degenerative Joint Disease Post-Op Diagnosis: Left Knee End-Stage Degenerative Joint Disease Procedure Operation Date: 12/30/18 07:00 Actual Procedures p Left Total Knee Arthroplasty(Left) - Fernando Walters MD Surgeon JILLIAN Walters MD White Kid Buffer sefcalina Estimated Blood Loss 50 Findings Consistent with Post-Op Diagnosis Specimens see operative report Drains none Complications none Disposition Accompanied Patient To Recovery: Yes Disposition: Recovery Room Indications This 68-year-old white female presented to the office with complaints of intractable left knee pain. She had tried conservative care measures including injection therapy, without improvement. She elected to proceed with surgical intervention after being educated about potential risks and outcomes. Preoperative imaging was obtained. Description of Procedure Patient was administered a spinal anesthetic and then taken to the operating room where she was given sedation. She was prepped and draped in the usual sterile fashion. Please see Dr. Walters's operative report for specifics of the procedure. I was present for the entire case from initial patient positioning through final wound closure. Assistance was provided in tissue retraction, hemostasis, trial implant placement, final implant placement, and final wound closure. Patient was taken to the recovery room in satisfactory condition. I attest to the content of the Intraoperative Record and any orders documented therein. Any exceptions are noted below.
--- NOTE | 2018-12-30 08:55 | Operative Report ---
DATE OF OPERATION: 12/30/2018 SURGEON: Fernando Walters MD PAINT CREW SUPERVISOR: Chago Xavier PA-C. No resident or fellow available. PREOPERATIVE DIAGNOSIS: Left knee osteoarthritis. POSTOPERATIVE DIAGNOSIS: Left knee osteoarthritis. OPERATION PERFORMED: Cemented left total knee replacement. SUMMARY OF IMPLANTS: Size 2.5 left posterior cruciate substituting femur, 2.5 mobile bearing tray, 38 patella, 2.5 x 12.5 rotating platform stabilized posterior cruciate insert. Two bags of Pal[place]os G cement. EBL: 50 mL. PATHOLOGY: Pending on bone. PERIOPERATIVE SITUATION: Medically cleared female with intractable knee pain, wished to proceed with total knee replacement, had the other side done. At this point in time, was happy with that. Wants to proceed with the left side and understands the risks and consequences. No guarantees. DESCRIPTION OF PROCEDURE: The patient was appropriately identified, site verified, consent verified. Antibiotics confirmed as being given, TXA confirmed as being given. The left lower extremity was prepped and draped in usual routine fashion. Tourniquet inflated to 300 mmHg after exsanguination of limb with a rubber Esmarch bandage for a total of approximately 42 minutes. Midline exposure utilized. Parapatellar arthrotomy performed. Synovectomy completed, osteophytes resected. Distal femur then entered and the intramedullary guide seated. Distal femur was then resected 14 mm. Proximal tibia guide was then seated after menisci were excised and the proximal tibia resected 4 mm. The extension gap was excellent at 12.5. The femur was then sized between a 3 and 2.5, was measured 3 cut 2.5. There was no notching. The flexion gap was excellent. The posterior injections were then applied with the Orthomix. The box cut was then made and the size 2.5 femur fit well. The tibia was then broached and reamed to a 2.5 and a trial reduction with a 10 and 12 mm spacer proved that the 12.5 was best for mid range flexion and did not eliminate extension. The patella was then sized to 38, resection was made leaving 14-15 mm. Seating holes made. The trial tracked well. All trial implants were then removed. The wound irrigated with Betadine and Pulsavac, the permanent cemented into position. After 12 minutes, the Orthomix was injected and the tourniquet was deflated. The wound was then irrigated, after 14 minutes, the trial spacer removed. The permanent liner seated. The knee reduced and then closed with #2 Vicryl, 2-0 Vicryl and stainless steel clips. Appropriate dressing applied. The patient was then transferred to recovery room in satisfactory condition, having tolerated the procedure well. Tibia cemented first, femur cemented second, patella cemented third. I attest to the content of the Intraoperative Record and any orders documented therein. Any exception s are noted below.
--- NOTE | 2018-12-30 09:04 | XRay Report ---
XR knee LT 2V routine HISTORY: 68 years-old Female Surgical Post Op left knee total joint arthroplasty COMPARISON: Left knee radiographs 05/11/2018 TECHNIQUE: 2 views of the left knee FINDINGS: Left knee total joint arthroplasty and patellar resurfacing. Anterior midline skin christiano are noted along with expected postsurgical soft tissue swelling and deep tissue air. No acute fracture or retai marielena foreign body. Drainage catheter noted. IMPRESSION: Left knee total joint arthroplasty and patella resurfacing demonstrates satisfactory alig nment. The above report was generated using voice recognition software. It may contain grammatical, syntax o r spelling errors. Electronically signed by: Colin Patel M.D. 12/30/2018 9:03 AM
--- NOTE | 2018-12-30 09:09 | Anesthesiology Progress Note ---
Date of Service December 30, 2018 Anesthesia Post Procedure Vital Signs Vital Signs: Temp Pulse Pulse Resp BP Pulse Ox 12/30/18 09:00 36.9 C 56 L 18 150/84 H 98 12/30/18 08:50 58 L 18 153/87 H 100 12/30/18 08:40 56 L 13 145/77 H 100 12/30/18 08:30 36.9 C 57 L 18 134/71 98 12/30/18 08:23 36.9 C 90 20 120/68 95 12/30/18 05:30 36.6 C 58 L 20 162/94 H 95 Pain Intensity Left Knee: Pain Intensity: 0 Transfer of Care Handoff Completed per policy Notes Mental Status: alert / awake / arousable and participated in evaluation Patient Amnestic to Procedure: Yes Nausea / Vomiting: adequately controlled Pain: adequately controlled Airway Patency, RR, SpO2: stable & adequate BP & HR: stable & adequate Hydration State: stable & adequate Neuraxial Anesthesia: was administered and sensory block is resolving Anesthetic Complications: no major complications apparent and Pt Satisfied with anesthetic care
[2018-12-30] MEDS ORDERED: HYDROmorphone INJ 0.5 MG/0.5 ML SYR IV PRN (09:41)
[2018-12-30] MEDS ORDERED: DOCUSATE SODIUM 100 MG CAP PO SCH (09:41)
[2018-12-30] MEDS ORDERED: MAGNESIUM HYDROXIDE SUSP 30 ML UDC PO PRN (09:41)
[2018-12-30] MEDS ORDERED: BISACODYL 10 MG SUPP PR PRN (09:41)
[2018-12-30] MEDS ORDERED: DiphenhydrAMINE HCL 50 MG/ML VIAL IV PRN (09:41)
[2018-12-30] MEDS ORDERED: NALOXONE HCL 0.4 MG/1 ML VIAL/CARP IV PRN (09:41)
[2018-12-30] MEDS ORDERED: ALUMINUM/MAGNESIUM SUSP 30 ML UDC PO PRN (09:41)
[2018-12-30] MEDS ORDERED: METOCLOPRAMIDE HCL INJ 5 MG/ML 2 ML VIAL IV PRN (09:41)
[2018-12-30] MEDS ORDERED: SODIUM CHLORIDE 0.9% 1000ML 1,000 ML IV SCH (09:41)
[2018-12-30] MEDS ORDERED: MULTIVITAMIN TAB PO SCH (09:41)
[2018-12-30] MEDS ORDERED: ACETAMINOPHEN 500 MG TAB PO PRN (10:41)
[2018-12-30] MEDS: DOCUSATE SODIUM 100 MG CAP PO SCH ×2 (10:47→20:44)
[2018-12-30] MEDS: MULTIVITAMIN TAB PO SCH (10:47)
[2018-12-30] MEDS: ATORVASTATIN 20 MG TAB PO SCH (10:47)
[2018-12-30] MEDS: METOPROLOL SUCC 50MG EXT REL TAB PO SCH (10:48)
--- NOTE | 2018-12-30 11:24 | Progress Note ---
DATE: 12/30/2018 SUBJECTIVE: Status post left total knee replacement, postop check. The patient is sitting up in bed comfortably. Denies any chest pain, shortness of breath, fever, chills, nausea, vomiting, or headache. OBJECTIVE: Vital signs are stable. She is afebrile. Neurovascular check, is wearing off from the spinal block. She has active extension and plantar flexion of her toes. Postop x-rays look excellent. ASSESSMENT AND PLAN: Doing well. Hep-Lock IV. Mobilize when she is awake and alert. She has issues with taking narcotics. We will place her on Celebrex 200 mg daily, Tylenol 1000 mg p.o. q. 8 hours around the clock, gabapentin 100 mg p.o. b.i.d., and p.r.n. Oxy IR. Received a dose of Coumadin tonight.
--- NOTE | 2018-12-30 11:41 | Discharge Summary ---
CHIEF COMPLAINT: Left knee pain. HISTORY OF PRESENT ILLNESS: The patient underwent elective left total knee replacement. Hospital course has been uneventful up to this point. Postop x-rays have been excellent. PAST MEDICAL HISTORY: Remarkable for hypertension, elevated cholesterol, diabetes, GERD, obesity, osteoarthritis, and hiatal hernia. PAST SURGICAL HISTORY: Previous surgeries include appendectomy, ovarian cyst excision, tonsillectomy, vein stripping, cholecystectomy, right total knee replacement. ALLERGIES: COMPAZINE AND LISINOPRIL, WHICH CAUSES TARDIVE DYSKINESIA FOR THE COMPAZINE. CURRENT MEDICATIONS: Include amoxicillin for dental visits, aspirin 81 mg daily, losartan, metoprolol, multivitamin, ranitidine. She will take all of those as previously described. In addition, will take Celebrex 200 mg daily, gabapentin 100 mg p.o. b.i.d. around the clock, Tylenol 1000 mg q. 8 hours and p.r.n. Oxy IR for postop pain management. She will also be on Coumadin to keep INR 1.8-2.2. FAMILY HISTORY: Noncontributory. Parents are . SOCIAL HISTORY: Reveals she is retired. No tobacco use. . REVIEW OF SYSTEMS: Noncontributory. ASSESSMENT AND PLAN: Overall doing well status post left total knee replacement. Postop x-rays look excellent. Will discharge tomorrow after PT/OT.
[2018-12-30 11:50] LABS: INR 1.1 (0.9-1.1); Prothrombin Time 11.4 Seconds (9.0-12.0)
[2018-12-30] MEDS: LOSARTAN POTASSIUM 25 MG TAB PO SCH (11:56)
[2018-12-30] MEDS: KETOROLAC TROMETHAMINE 15 MG/ML VIAL IV SCH ×3 (12:00→23:41)
[2018-12-30] MEDS: GABAPENTIN 100 MG CAP PO SCH ×2 (12:57→20:43)
[2018-12-30] MEDS: ORTHO WARFARIN NOMOGRAM SCH (14:02)
[2018-12-30] MEDS: CEFAZOLIN 2000MG 2,000 MG/15 ML SYR IV SCH ×2 (14:03→23:41)
[2018-12-30] MEDS ORDERED: TRANEXAMIC ACID 1,000 MG in 0.9 % SODIUM CHLORIDE 100 ML IV SCH (14:31)
[2018-12-30] MEDS ORDERED: WARFARIN SOD 5 MG TAB PO SCH (16:00)
[2018-12-30] MEDS: FERROUS GLUCONATE 324 MG TAB PO SCH (16:52)
[2018-12-30] MEDS ORDERED: METOPROLOL SUCC 50MG EXT REL TAB PO SCH (21:00)
[2018-12-30] MEDS ORDERED: SENNA 8.6 MG TAB PO SCH (21:00)
[2018-12-30] MEDS ORDERED: ASPIRIN 81 MG ECTAB PO SCH (21:00)
[2018-12-30] MEDS: OXYCODONE HCL IR 5 MG TAB (IMMEDIATE RELEASE) PO PRN (23:41)
[2018-12-31] MEDS: OXYCODONE HCL IR 5 MG TAB (IMMEDIATE RELEASE) PO PRN ×2 (05:19→12:25)
[2018-12-31] MEDS: KETOROLAC TROMETHAMINE 15 MG/ML VIAL IV SCH (06:03)
[2018-12-31 06:19] LABS: Hematocrit (blood only) 34.3 % (37-47); Hemoglobin 11.6 g/dL (12.0-16.0); Mean Corpuscular Hgb Conc 33.8 g/dL (32-36); Mean Corpuscular Volume 87.1 fL (80-100); Mean Platelet Volume 9.8 fL (7.4-10.4); Platelet Count 155 K/uL (130-400); RDW Coefficient of Variation 12.9 % (11.5-14.5); RDW Standard Deviation 41.8 fL (36.4-46.3); Red Blood Count 3.94 M/uL (4.2-5.4); White Blood Count 7.21 K/uL (4.8-10.8)
[2018-12-31 06:32] LABS: INR 1.2 (0.9-1.1); Prothrombin Time 11.9 Seconds (9.0-12.0)
[2018-12-31 06:50] LABS: BUN Creatinine Ratio 27.8 (10-20); Calcium 8.2 mg/dl (8.5-10.1); Creatinine Clr Calc Pharmacy 58.2 ml/min; Est GFR (African American) 62.8; Est GFR (Non-African American) 54.1; Potassium 4.2 mmol/L (3.5-5.1)
--- NOTE | 2018-12-31 07:04 | Progress Note ---
DATE: 12/31/2018 SUBJECTIVE: Postop check, status post left total knee replacement. Postop day #1. The patient is doing well. Denies any nausea, vomiting, chest pain, shortness of breath, fever or chills. OBJECTIVE: Vital signs are stable. She is afebrile. Neurovascular check femoral sciatic nerve is normal. Wound dressing is clean, dry and intact. Calf is nontender. INR is 1.2. ASSESSMENT: Doing well. Discharge to home today after PT, OT. Discharge on Celebrex 200 mg daily, Tylenol 1000 mg q. 8 hours around the clock and q. 3 hours p.r.n. oxycodone with no Tylenol. Follow up in 2 weeks for staple removal. Discharge on 4 mg Coumadin. Check INR on Friday.
[2018-12-31] MEDS: DOCUSATE SODIUM 100 MG CAP PO SCH (07:54)
[2018-12-31] MEDS: FERROUS GLUCONATE 324 MG TAB PO SCH (07:54)
[2018-12-31] MEDS: LOSARTAN POTASSIUM 25 MG TAB PO SCH (07:55)
[2018-12-31] MEDS: GABAPENTIN 100 MG CAP PO SCH (07:55)
[2018-12-31] MEDS: MULTIVITAMIN TAB PO SCH (07:55)
[2018-12-31] MEDS: ATORVASTATIN 20 MG TAB PO SCH (07:56)
[2018-12-31] MEDS: METOPROLOL SUCC 50MG EXT REL TAB PO SCH (07:56)
[2018-12-31] MEDS ORDERED: dexAMETHasone 10 MG in SYRINGE 0 ML IV SCH (08:00)
--- NOTE | 2018-12-31 08:06 | Anesthesiology Progress Note ---
Date of Service December 31, 2018 Anesthesia Post Procedure Vital Signs Vital Signs: Temp Pulse Pulse Pulse Pulse Resp BP 12/31/18 07:37 37.1 C 53 L 16 128/78 12/31/18 03:00 36.7 C 56 L 14 122/73 12/30/18 23:07 37.4 C 59 L 16 119/68 12/30/18 20:41 58 L 113/73 12/30/18 19:55 36.6 C 61 18 134/78 12/30/18 15:48 36.6 C 61 18 122/77 12/30/18 12:17 59 L 18 134/82 12/30/18 11:23 56 L 16 145/83 H 12/30/18 10:25 56 L 16 127/85 12/30/18 09:51 53 L 16 136/87 12/30/18 09:25 36.5 C 55 L 16 154/90 H 12/30/18 09:10 36.9 C 55 L 18 160/85 H 12/30/18 09:00 36.9 C 56 L 18 150/84 H 12/30/18 08:50 58 L 18 153/87 H 12/30/18 08:40 56 L 13 145/77 H 12/30/18 08:30 36.9 C 57 L 18 134/71 12/30/18 08:23 36.9 C 90 20 120/68 Pulse Ox 12/31/18 07:37 94 12/31/18 03:00 97 12/30/18 23:07 98 12/30/18 20:41 12/30/18 19:55 93 12/30/18 15:48 97 12/30/18 12:17 96 12/30/18 11:23 97 12/30/18 10:25 98 12/30/18 09:51 97 12/30/18 09:25 97 12/30/18 09:10 98 12/30/18 09:00 98 12/30/18 08:50 100 12/30/18 08:40 100 12/30/18 08:30 98 12/30/18 08:23 95 Pain Intensity Left Knee: Pain Intensity: 4 Notes Mental Status: alert / awake / arousable and participated in evaluation Patient Amnestic to Procedure: Yes Nausea / Vomiting: adequately controlled Pain: adequately controlled Airway Patency, RR, SpO2: stable & adequate BP & HR: stable & adequate Hydration State: stable & adequate Neuraxial Anesthesia: was administered and sensory block resolved Anesthetic Complications: no major complications apparent and Pt Satisfied with anesthetic care
--- NOTE | 2018-12-31 08:36 | Orthopedic Progress Note ---
Date of Service December 31, 2018 Assessment & Plan (1) S/P total knee replacement: Dressings were changed today. PT OT today prior to discharge Coumadin per nomogram today Continue Coumadin 4 mg daily on Friday, Friday, and Friday Follow-up in the office in 2 weeks as scheduled for staple removal Continue using the walker for ambulation-use the knee immobilizer today and discontinue tomorrow morning Subjective Patient is seen in her room this morning. She states she did well overnight. She describes an aching in her knee. No current pain. She did take 2 oxycodone tablets this morning around 5 AM. No nausea, vomiting, chest pain, shortness of breath, or abdominal pain. Review of Systems Review of Systems: Unchanged from preop Physical Exam Physical Exam: Dressings are dry, clean, and intact. Upon removal, no active bleeding. Expected postoperative edema. No ecchymosis. Scant drainage on his dressings. Patient is able to set his quad and perform a straight leg raise. Intact motor function to the ankle. Knee flexion easily to 60 degrees. Neurologic: Gross sensation is intact across the left leg by soft touch. Peripheral pulses are 2+. Results & Data Vital Signs (Past 12 Hours) Vital Signs Temp Pulse Pulse Resp BP Pulse Ox 12/31/18 07:37 37.1 C 53 L 16 128/78 94 12/31/18 03:00 36.7 C 56 L 14 122/73 97 12/30/18 23:07 37.4 C 59 L 16 119/68 98 12/30/18 20:41 58 L 113/73
[2018-12-31] MEDS ORDERED: CeleBREX 200 MG CAP PO SCH (09:00)
[2018-12-31] MEDS: ORTHO WARFARIN NOMOGRAM SCH (11:08)
[2018-12-31] MEDS ORDERED: WARFARIN SOD 5 MG TAB PO SCH (16:00)
== END 2018-12-31 14:03 | disposition home health service (06) | DRG 470 ==
LOC: ASU 04:52 → 3E 09:38